=== PATIENT | female | born 1980 ===

== ENCOUNTER 2016-07-01 09:20 | Inpatient (IN) | payer OTHER ==
[2016-07-01 09:32] VITALS: BMI 25.0
[2016-07-01] MEDS ORDERED: Sodium Chloride 0.9% 1,000 ML IV STA (10:01)
[2016-07-01] MEDS ORDERED: Belladonna-Phenobarbital PO STA (10:01)
[2016-07-01] MEDS ORDERED: Belladonna-Phenobarbital ONE (10:29)
[2016-07-01] MEDS ORDERED: Sodium Chloride 0.9% 1,000 ML ONE (10:29)
--- NOTE | 2016-07-01 10:47 | C.PDOC ---
History Of Present Illness 35 y/o female presents to the ED with complains of epigastric pain with multiple episodes of vomiting and bloating. Pt reports history of gastritis, never been seen by GI. Pt is on omeprazole prescribed by PMD in [place]. Pt denies fever, chills, chest pain, SOB, diarrhea or any other complaints. Time Seen by Provider: 07/01/16 09:43 Chief Complaint (Nursing): Abdominal Pain History Per: Patient History/Exam Limitations: no limitations Onset/Duration Of Symptoms: Days Current Symptoms Are (Timing): Still Present Severity: Mild Location Of Pain/Discomfort: Epigastric Radiation Of Pain To:: None Quality Of Discomfort: "Pain" Associated Symptoms: Vomiting. denies: Fever, Diarrhea, Chest Pain Alleviating Factors: None Recent travel outside of the [place]: No Past Medical History Reviewed: Historical Data, Nursing Documentation, Vital Signs Vital Signs: Last Vital Signs Temp 98.1 F 07/01/16 12:48 Pulse 73 07/01/16 13:35 Resp 17 07/01/16 13:35 BP 125/90 07/01/16 13:35 Pulse Ox 100 07/01/16 15:51 - Medical History PMH: HTN, Kidney Stones (Right kidney), Chronic Kidney Disease (SEE COMMENT) Family History: States: Unknown Family Hx - Social History Hx Alcohol Use: Yes Hx Substance Use: No - Immunization History Hx Tetanus Toxoid Vaccination: No Hx Influenza Vaccination: No Hx Pneumococcal Vaccination: No Review Of Systems Except As Marked, All Systems Reviewed And Found Negative. Constitutional: Negative for: Fever, Chills Cardiovascular: Negative for: Chest Pain Respiratory: Negative for: Shortness of Breath Gastrointestinal: Positive for: Vomiting, Abdominal Pain. Negative for: Diarrhea Physical Exam - Physical Exam Appears: Non-toxic, Other (anxious) Skin: Warm, Dry, No Rash Head: Atraumatic, Normacephalic Neck: Normal ROM, Supple Chest: Symmetrical Cardiovascular: Rhythm Regular, No Murmur Respiratory: Normal Breath Sounds, No Rales, No Rhonchi, No Wheezing Gastrointestinal/Abdominal: Soft, Tenderness (epigastric), No Guarding, No Rebound Extremity: Normal ROM Extremity: Bilateral: Atraumatic Neurological/Psych: Oriented x3, Normal Speech ED Course And Treatment - Laboratory Results Result Diagrams: 07/01/16 10:48 07/01/16 10:48 O2 Sat by Pulse Oximetry: 100 (on room air) Pulse Ox Interpretation: Normal - CT Scan/US US abdomen Other Rad Studies (CT/US): Read By Radiologist, Radiology Report Reviewed CT/US Interpretation: Accession No. : [id number]. Patient Name / ID : ALEJA XAVIER / [id number]. Exam Date : 07/01/2016 13:08:34 ( Approved ). Study Comment : Sex / Age : F / 35Y. Creator : Maryam Singh MD. Dictator : Maryam Singh MD. Women'S Soccer Coach : Manager Winter : Maryam Singh MD. Approver2 : Report Date : 07/01/2016 14:08:11. My Comment : . HISTORY: epigastric/RUQ pain. COMPARISON: None available. TECHNIQUE: Sonographic evaluation of the right upper quadrant of the abdomen. FINDINGS: LIVER: Measures 14.5 cm in length and appears within normal limits. No focal mass identified. The main portal vein appears patent with normal directional flow. Tiny hepatic calcification within the right lobe, likely granuloma. No intrahepatic bile duct dilatation. GALLBLADDER: Gallstones. Immobile gallstone noted within the gallbladder neck. Gallbladder sludge. Gallbladder wall thickness appears top normal measuring approximately 3 mm. Small pericholecystic edema. Negative sonographic Sanches's sign as assessed by the hand embroiderer. COMMON BILE DUCT: Measures 5 mm. PANCREAS: Not well- visualized. RIGHT KIDNEY: Measures 10.2 x 4.2 x 4.9 cm. No obstructing calculus or hydronephrosis identified. 4 mm echogenic focus without clear posterior acoustic shadowing, possibly calculus versus tiny angio myelolipoma. AORTA: Limited visualization appears unremarkable. IVC: Limited visualization appears grossly unremarkable. OTHER FINDINGS: None . IMPRESSION : Gallstones and gallbladder sludge. Immobile gallstone noted within the gallbladder neck. Gallbladder wall thickness appears top normal. Mild pericholecystic edema. Negative sonographic Sanches's sign. Correlate clinically. Additional incidental findings as above. Progress Note: Plan: labs, UA, IV fluids, , protonix, zofran. US positive for gallbladder stone, possible acute cholecystitis. Spoke to surgery team who evaluated the patient. Case discussed with Glenna, donkey doctor surgeon , requested patient be admitted to medicine. Pt states her PMD is [facility]. Spoke to Vinny, she hasn't seen patient in a year and doesn't feel comfortable admitting patient; wants medicine donkey doctor to admit. Beverly Ramirez medicine donkey doctor accepts patient for admission. Disposition - Disposition Disposition: HOSPITALIZED Disposition Time: 15:50 Condition: FAIR - Clinical Impression Clinical Impression: Cholecystitis - PA / AGENCY RECRUITER / Resident Statement MD/DO has reviewed & agrees with the documentation as recorded. - Scribe Statement The provider has reviewed the documentation as recorded by the Scribe Festus Cadena All medical record entries made by the Scribe were at my direction and personally dictated by me. I have reviewed the chart and agree that the record accurately reflects my personal performance of the history, physical exam, medical decision making, and the department course for this patient. I have also personally directed, reviewed, and agree with the discharge instructions and disposition. Decision To Admit - Pt Status Changed To: Hospital Disposition Of: Inpatient - Admit Certification Admit to Inpatient:: After my assessment, the patient will require hospitalization for at least two midnights. This is because of the severity of symptoms shown, intensity of services needed, and/or the medical risk in this patient being treated as an outpatient. - InPatient: Physician Admission Certification:: will need IV anx and surgical treatment for acute chilecystitis - . Bed Request Type: Regular Patient Diagnosis: Cholecystitis
[2016-07-01 10:52] LABS: RBC URINE < 1 /hpf (0-3); URINE BACTERIA RARE (<OCC); URINE BILIRUBIN NEGATIVE (NEGATIVE); URINE BLOOD NEGATIVE (NEGATIVE); URINE COLOR Yellow (YELLOW); URINE GLUCOSE (UA) 1+ mg/dL (Normal); URINE KETONE NEGATIVE (NEGATIVE); URINE LEUKOCYTE ESTERASE NEG Leu/uL (Negative); URINE PROTEIN NEGATIVE (NEGATIVE); URINE UROBILINOGEN NORMAL mg/dL (0.2-1.0); WBC URINE 1 /hpf (0-5)
[2016-07-01 10:55] LABS: BASO # 0.1 K/uL (0.0-0.2); BASO % 0.7 % (0.0-2.0); EOS % 0.1 % (0.0-4.0); HEMATOCRIT 44.9 % (34.0-47.0); LYMPH % 16.3 % (20.0-40.0); MEAN CELL VOLUME 90.3 fL (81.0-99.0); MEAN CORPUSCULAR HEMOGLOBIN 30.2 pg (27.0-31.0); MEAN CORPUSCULAR HGB CONC 33.5 g/dL (33.0-37.0); MONO # 0.9 K/uL (0.0-0.8); MONO % 4.6 % (0.0-10.0); RED CELL DISTRIBUTION WIDTH 13.1 % (11.5-14.5); WHITE BLOOD COUNT 18.4 K/uL (4.8-10.8)
[2016-07-01 11:08] LABS: CHLORIDE 97 mmol/L (98-107)
[2016-07-01 11:09] LABS: POTASSIUM 3.5 mmol/L (3.6-5.2); SODIUM 137 mmol/L (132-148)
[2016-07-01 11:11] LABS: ALB/GLOB RATIO 1.2 (1.0-2.1); ALKALINE PHOSPHATASE 69 U/L (38-126); ALT/SGPT 17 U/L (9-52); AST/SGOT 28 U/L (14-36); BILIRUBIN,TOTAL 0.4 mg/dL (0.2-1.3); BLOOD UREA NITROGEN 7 mg/dL (7-17); CARBON DIOXIDE 25 mmol/L (22-30); GFR AFRICAN-AMERICAN > 60; GLUCOSE,RANDOM 122 mg/dL (65-105); TOTAL PROTEIN 8.3 g/dL (6.3-8.3)
[2016-07-01 11:12] LABS: CALCIUM 9.3 mg/dl (8.6-10.4)
--- NOTE | 2016-07-01 14:09 | US ---
HISTORY: epigastric/RUQ pain COMPARISON: None available TECHNIQUE: Sonographic evaluation of the right upper quadrant of the abdomen. FINDINGS: LIVER: Measures 14.5 cm in length and appears within normal limits. No focal mass identified. The main portal vein appears patent with normal directional flow. Tiny hepatic calcification within the right lobe, likely granuloma. No intrahepatic bile duct dilatation. GALLBLADDER: Gallstones. Immobile gallstone noted within the gallbladder neck. Gallbladder sludge. Gallbladder wall thickness appears top normal measuring approximately 3 mm. Small pericholecystic edema. Negative sonographic Sanches's sign as assessed by the ropewalk rope maker. COMMON BILE DUCT: Measures 5 mm. PANCREAS: Not well-visualized. RIGHT KIDNEY: Measures 10.2 x 4.2 x 4.9 cm. No obstructing calculus or hydronephrosis identified. 4 mm echogenic focus without clear posterior acoustic shadowing, possibly calculus versus tiny angio myelolipoma. AORTA: Limited visualization appears unremarkable. IVC: Limited visualization appears grossly unremarkable. OTHER FINDINGS: None . IMPRESSION: Gallstones and gallbladder sludge. Immobile gallstone noted within the gallbladder neck. Gallbladder wall thickness appears top normal. Mild pericholecystic edema. Negative sonographic Sanches's sign. Correlate clinically. Additional incidental findings as above.
--- NOTE | 2016-07-01 15:19 | CP.PCM.CON ---
<Tulio Arellano - Last Filed: 07/01/16 15:11> History of Present Illness - History of Present Illness History of Present Illness: Gen Surg: Dr. Manzanares 35F w/ PMHx of HTN presented to ED on 07/01/16 w/ complaints of abdominal pain. Patient reports pain began yesterday around 8PM. She states pain is associated with fatty food intake. Patient reports she's had similar episodes in the past but none this severe. Patient admits pain radiates to her back and describes it as a pressure-like sensation. She reports having nausea and having one bout of emesis which was non-bilious, non-bloody. Pt states she tried taking tums, gas-x , which provided no symptom relief. Currently denies chest pain/SOB, diarrhea. PMHx:as listed above PSurgHx: lipoma removal Allergies: Aspirin, gabapentin Soc Hx: Smokes 6-8cigs for the past 18 years. EtOH use, socially. Review of Systems - Review of Systems Review of Systems: 12pt ROS carried out, unremarkable; except as stated in HPI Past Patient History - Past Social History Smoking Status: Light Smoker < 10 Cigarettes Daily - CARDIAC Hx Hypertension: Yes - RENAL Hx Chronic Kidney Disease: Yes (SEE COMMENT) Hx Kidney Stones: Yes (Right kidney) - INTEGUMENTARY Hx Dermatological Problems: Yes (SEE COMMENT) Other/Comment: LIPOMA - GASTROINTESTINAL Hx Gastrointestinal Disorders: Yes Hx Gastroesophageal Reflux: Yes - GENITOURINARY/GYNECOLOGICAL Hx Genitourinary Disorders: Yes Hx Urinary Tract Infection: Yes - PSYCHIATRIC Hx Substance Use: No Meds Allergies/Adverse Reactions: Allergies Allergy/AdvReac Type Severity Reaction Status Date / Time aspirin Allergy Verified 07/01/16 09:32 gabapentin Allergy Verified 07/01/16 09:32 Physical Exam - Constitutional Appears: Non-toxic, No Acute Distress - Head Exam Head Exam: NORMOCEPHALIC - Eye Exam Eye Exam: Normal appearance - ENT Exam ENT Exam: Mucous Membranes Moist - Respiratory Exam Respiratory Exam: NORMAL BREATHING PATTERN - Cardiovascular Exam Cardiovascular Exam: +S1, +S2. absent: Tachycardia - GI/Abdominal Exam GI & Abdominal Exam: Soft, Tenderness. absent: Guarding Additional comments: RUQ/ epi-gastrium - Neurological Exam Neurological exam: Alert, Oriented x3 - Skin Skin Exam: Dry, Intact, Warm Results - Vital Signs Recent Vital Signs: Last Vital Signs Temp 98.1 F 07/01/16 12:48 Pulse 73 07/01/16 13:35 Resp 17 07/01/16 13:35 BP 125/90 07/01/16 13:35 Pulse Ox 98 07/01/16 13:35 - Labs Result Diagrams: 07/01/16 10:48 07/01/16 10:48 Labs: Laboratory Results - last 24 hr 07/01/16 07/01/16 10:25 10:48 WBC 18.4 H RBC 4.98 Hgb 15.0 Hct 44.9 MCV 90.3 MCH 30.2 MCHC 33.5 RDW 13.1 Plt Count 260 MPV 10.0 Neut % (Auto) 78.3 H Lymph % (Auto) 16.3 L Smyth % (Auto) 4.6 Eos % (Auto) 0.1 Baso % (Auto) 0.7 Neut # 14.4 H Lymph # 3.0 Smyth # 0.9 H Eos # 0.0 Baso # 0.1 Sodium 137 Potassium 3.5 L Chloride 97 L Carbon Dioxide 25 Anion Gap 19 BUN 7 Creatinine 0.7 Est GFR ( Amer) > 60 Est GFR (Non-Af Amer) > 60 Random Glucose 122 H Calcium 9.3 Total Bilirubin 0.4 AST 28 ALT 17 Alkaline Phosphatase 69 Total Protein 8.3 Albumin 4.4 Globulin 3.8 Albumin/Globulin Ratio 1.2 Lipase 30 Urine Color Yellow Urine Clarity Hazy Urine pH 7.0 Ur Specific Katy 1.012 Urine Protein Negative Urine Glucose (UA) 1+ Urine Ketones Negative Urine Blood Negative Urine Nitrate Negative Urine Bilirubin Negative Urine Urobilinogen Normal Ur Leukocyte Esterase Neg Urine WBC (Auto) 1 Urine RBC (Auto) < 1 Ur Squamous Epith Cells 8 H Urine Bacteria Rare Urine HCG, Qual Negative - Imaging and Cardiology US - abdomen Status: Image reviewed by me, Report reviewed by me Assessment & Plan - Assessment and Plan (Free Text) Assessment: 35F w/ symptomatic cholelithiasis vs. acute cholecystitis -F/U HIDA scan -NPO after MN -Scheduled for laparoscopic cholecystectomy tomorrow AM -IVF -ABx -analgesic/anti-emetic -GI/DVT ppx -D/w Dr. Manzanares <Singh Manzanares - Last Filed: 07/09/16 17:49> Results - Vital Signs Recent Vital Signs: Last Vital Signs Temp 98.1 F 07/03/16 00:00 Pulse 65 07/03/16 00:00 Resp 20 07/03/16 00:00 BP 100/60 07/03/16 00:00 Pulse Ox 99 07/03/16 00:00 - Labs Result Diagrams: 07/03/16 05:44 07/03/16 05:44 Attending/Attestation - Attestation I have personally seen and examined this patient.: Yes I have fully participated in the care of the patient.: Yes I have reviewed all pertinent clinical information: Yes Notes (Text): 07/09/16 17:47 07/07/16 21:16 Pt was seen and examined at bedside on 07/02/16 Agree with above note and assessment Pt with Acute Cholecystitis with Cholelithiasis OR for Lap Cholecystectomy possible Open Consent Plan d.w pt in detail. Risk and benefit explaine in detail.
[2016-07-01] MEDS ORDERED: Piperacillin/Tazobact 3.375 gm 100 ML IV STA (15:24)
[2016-07-01] MEDS ORDERED: Piperacillin/Tazobact 3.375 gm 100 ML IVPB ONE (16:25)
[2016-07-01] MEDS ORDERED: Lactated Ringer's 1,000 ML ONE (16:26)
--- NOTE | 2016-07-01 16:52 | RAD ---
Chest, one view Indication: Preop Comparison: None available Findings: Examination limited by habitus. The cardiomediastinal silhouette appears within normal limits of size. No focal consolidation, significant pleural effusion, or definite pneumothorax evident. 3 mm left upper lobe calcified granuloma. Please note that chest x-ray has limited sensitivity for the detection of pulmonary masses. Degenerative changes of the spine. Impression: No focal consolidation, significant pleural effusion, or definite pneumothorax evident.
[2016-07-01] MEDS: Lactated Ringer's 1,000 ML IV SCH (17:08)
[2016-07-01 17:19] LABS: INR 0.9
--- NOTE | 2016-07-01 19:06 | CP.PCM.HP ---
History of Present Illness - History of Present Illness History of Present Illness: 35 yo female pt with pmh of HTN, gastritis, CKD, Right kidney stones presented with c/o multiple epi of vomiting and bloating of abdomen asso with epigastric pain. pt taking PPIs for gastritis. no fever, vomiting, chest pain. no SOB, no any recent trauma. in ED, blood work done s/o incre WBC. USG abd s/o immobile gallstone noted within the gallbladder neck. Gallbladder sludge. started on iv fluids, antibiotics, zofran, protonix. Present on Admission - Present on Admission Any Indicators Present on Admission: No Past Patient History - Past Social History Smoking Status: Light Smoker < 10 Cigarettes Daily - CARDIAC Hx Hypertension: Yes - RENAL Hx Chronic Kidney Disease: Yes (SEE COMMENT) Hx Kidney Stones: Yes (Right kidney) - INTEGUMENTARY Hx Dermatological Problems: Yes (SEE COMMENT) Other/Comment: LIPOMA - GASTROINTESTINAL Hx Gastrointestinal Disorders: Yes Hx Gastroesophageal Reflux: Yes - GENITOURINARY/GYNECOLOGICAL Hx Genitourinary Disorders: Yes Hx Urinary Tract Infection: Yes - PSYCHIATRIC Hx Substance Use: No Meds Allergies/Adverse Reactions: Allergies Allergy/AdvReac Type Severity Reaction Status Date / Time aspirin Allergy Verified 07/01/16 09:32 gabapentin Allergy Verified 07/01/16 09:32 Physical Exam - Constitutional Appears: Well - Head Exam Head Exam: ATRAUMATIC, NORMAL INSPECTION, NORMOCEPHALIC - Eye Exam Eye Exam: EOMI, Normal appearance, PERRL Pupil Exam: NORMAL ACCOMODATION, PERRL - ENT Exam ENT Exam: Mucous Membranes Moist, Normal Exam - Neck Exam Neck exam: Positive for: Normal Inspection - Respiratory Exam Respiratory Exam: Decreased Breath Sounds - Cardiovascular Exam Cardiovascular Exam: REGULAR RHYTHM, +S1, +S2 - GI/Abdominal Exam GI & Abdominal Exam: Diminished Bowel Sounds, Soft - Rectal Exam Rectal Exam: Deferred Results - Vital Signs Recent Vital Signs: Last Vital Signs Temp 98.4 F 07/01/16 18:00 Pulse 52 L 07/01/16 18:00 Resp 20 07/01/16 18:00 BP 145/85 07/01/16 18:00 Pulse Ox 99 07/01/16 18:00 - Labs Result Diagrams: 07/03/16 05:44 07/03/16 05:44 Labs: Laboratory Results - last 24 hr 07/01/16 17:09 PT 10.5 INR 0.9 APTT 22 Assessment & Plan (1) Cholecystitis Status: Acute - Assessment and Plan (Free Text) Plan: zosyn enalaril morphine dr. maurer protonix lovenox on hold till surg cnti same
[2016-07-01] MEDS: Piperacill/Tazo 3.375gm in Dex 50 ML IVPB SCH (19:30)
--- NOTE | 2016-07-01 19:49 | NM ---
EXAM: NM Hepatobiliary Scan CLINICAL HISTORY: 35 years old, female; Pain; Ruq pain; Additional info: Gallstones, sludge, gallbladder wall thickening and pericholecystic edema seen on sonography Gender: female TECHNIQUE: Frontal dynamic images of the abdomen and pelvis were obtained over 60 minutes following the intravenous administration of 5.1 mCi of Tc99m Choletec. EXAM DATE/TIME: 07/01/2016 2:38 PM COMPARISON: There are no prior studies for comparison. Correlation is made with sonogram report dated 07/01/16 FINDINGS: Liver: There is extraction of isotope by the liver. Ducts are visualized by 20 minutes. Bowel is visualized by 25 minutes. Imaging up to 60 minutes shows further clearance of activity from the liver with increasing bowel activity. There is no activity in the gallbladder. 3 hour delayed images show almost complete clearance of isotope from the liver with activity in bowel. There is nonvisualization of gallbladder Bile ducts: See above Gallbladder: See above. Stomach and bowel: See above. IMPRESSION: Nonvisualization of gallbladder consistent with cholecystitis
[2016-07-01] MEDS ORDERED: Potassium Chloride 20 mEq 100 ML IVPB ONE (20:00)
[2016-07-02] MEDS: Lactated Ringer's 1,000 ML IV SCH ×2 (01:30→21:46)
[2016-07-02] MEDS: Piperacill/Tazo 3.375gm in Dex 50 ML IVPB SCH ×3 (01:30→19:50)
[2016-07-02 06:04] LABS: BASO # 0.1 K/uL (0.0-0.2); EOS # 0.3 K/uL (0.0-0.7); EOS % 3.5 % (0.0-4.0); HEMATOCRIT 40.1 % (34.0-47.0); LYMPH # 3.2 K/uL (1.0-4.3); LYMPH % 35.3 % (20.0-40.0); MEAN CELL VOLUME 91.3 fL (81.0-99.0); MEAN CORPUSCULAR HEMOGLOBIN 30.4 pg (27.0-31.0); MEAN CORPUSCULAR HGB CONC 33.3 g/dL (33.0-37.0); MEAN PLATELET VOLUME 9.8 fL (7.2-11.7); MONO # 0.7 K/uL (0.0-0.8); MONO % 7.7 % (0.0-10.0); RED CELL DISTRIBUTION WIDTH 13.4 % (11.5-14.5); WHITE BLOOD COUNT 9.1 K/uL (4.8-10.8)
[2016-07-02 06:09] LABS: CHLORIDE 100 mmol/L (98-107); POTASSIUM 4.3 mmol/L (3.6-5.2); SODIUM 140 mmol/L (132-148)
[2016-07-02 06:11] LABS: GFR AFRICAN-AMERICAN > 60
[2016-07-02 06:12] LABS: ALB/GLOB RATIO 1.1 (1.0-2.1); ALKALINE PHOSPHATASE 51 U/L (38-126); ALT/SGPT 36 U/L (9-52); AST/SGOT 27 U/L (14-36); BLOOD UREA NITROGEN 5 mg/dL (7-17); CARBON DIOXIDE 28 mmol/L (22-30); GLUCOSE,RANDOM 88 mg/dL (65-105); TOTAL PROTEIN 6.3 g/dL (6.3-8.3)
[2016-07-02] MEDS ORDERED: Propofol 10 mg/ml Inj (20 ML) ONE (11:09)
[2016-07-02] MEDS ORDERED: Midazolam 2 MG/2 ML VIAL ONE (11:09)
[2016-07-02] MEDS ORDERED: Rocuronium 10 mg/ml (5 ml) ONE (11:29)
[2016-07-02] MEDS ORDERED: Succinylcholine Chloride 20 mg/ml Syr (5 ml) IV ONE (11:29)
[2016-07-02] MEDS ORDERED: Neostigmine Methylsulfate 3mg/3ml Syringe IV ONE (11:30)
[2016-07-02] MEDS ORDERED: Lidocaine 1% w Epi 1:100,000 Inj ONE (12:02)
[2016-07-02] MEDS ORDERED: Bupivacaine HCl 0.25% PF (10 ml) Inj ONE (12:03)
[2016-07-02] MEDS ORDERED: ceFAZolin IV 1 gm in Dextrose 0 ML IVPB ONE (12:03)
[2016-07-02] MEDS ORDERED: Lactated Ringer's 1,000 ML IV ONE ×2 (12:05→13:30)
--- NOTE | 2016-07-02 14:16 | PCM.SURG1 ---
Surgeon's Initial Post Op Note - Surgeon's Notes Surgeon: Dr. Manzanares Die Casting Machine Maintainer: Dr. Arellano PGY-1 Type of Anesthesia: General Endo Pre-Operative Diagnosis: acute cholecystitis Operative Findings: see operative report Post-Operative Diagnosis: see operative report Operation Performed: laparoscopic cholecystectomy. lysis of adhesions Specimen/Specimens Removed: gallbladder Estimated Blood Loss: EBL {In ML}: 75 Blood Products Given: N/A Drains Used: Dimas Date of Surgery/Procedure: 07/02/16 Time of Surgery/Procedure: 12:30
[2016-07-02] MEDS: HYDROmorphone 0.5 mg/0.5 ml ISec IVP PRN ×3 (14:24→15:29)
--- NOTE | 2016-07-02 15:02 | CP.PCM.PN ---
<Chayito Be - Last Filed: 07/02/16 14:58> Subjective - Date & Time of Evaluation Date of Evaluation: 07/02/16 Time of Evaluation: 10:00 - Subjective Subjective: Medicine Progress Note- Dr Beverly Ramirez's service Patient seen and examined this morning prior to surgery. Patient comfortable and not complaining of abdominal pain at the moment. She states that she starting experiencing pain yesterday night and that she has had this pain before. In the past it resolved on its own and she thought that it was due to gas and bloating. Patient experienced chills and nausea as well. Denies fever , vomiting, diarrhea, chest pain, shortness of breath, and palpitations. Objective - Vital Signs/Intake and Output Vital Signs (last 24 hours): Temp Pulse Resp BP Pulse Ox 97.6 F 81 20 138/87 100 07/02/16 14:13 07/02/16 14:45 07/02/16 14:45 07/02/16 14:45 07/02/16 14:45 Intake and Output: 07/02/16 07/02/16 06:59 18:59 Intake Total 1700 Balance 1700 - Medications Medications: Current Medications Enalapril Maleate (Vasotec) 10 mg PO DAILY [facility] Famotidine (Pepcid) 20 mg IVP DAILY [facility] Last Admin: 07/01/16 22:12 Dose: 20 mg Hydromorphone HCl (Dilaudid) 0.5 mg IVP Q5M PRN PRN Reason: Pain, Mild (1-3) Stop: 07/02/16 15:06 Last Admin: 07/02/16 14:35 Dose: 0.5 mg Lactated Ringer's (Lactated Ringer's) 1,000 mls @ 100 mls/hr IV .Q10H [facility] Last Admin: 07/02/16 01:30 Dose: Not Given Piperacillin Sod/Tazobactam Sod (Zosyn 3.375 Gm Iv Premix) 50 mls @ 100 mls/hr IVPB Q6H [facility] Last Admin: 07/02/16 06:17 Dose: 100 mls/hr Metoprolol Tartrate (Lopressor) 50 mg PO DAILY [facility] Morphine Sulfate (Morphine) 4 mg IVP Q4H PRN PRN Reason: Pain, moderate (4-7) Ondansetron HCl (Zofran Inj) 4 mg IVP Q4 PRN PRN Reason: Nausea/Vomiting Ondansetron HCl (Zofran Inj) 4 mg IVP ONCE PRN PRN Reason: Nausea/Vomiting Stop: 07/02/16 15:06 Pantoprazole Sodium (Protonix Ec Tab) 40 mg PO DAILY AJ - Labs Labs: 07/02/16 05:53 07/02/16 05:53 PT 10.9 SECONDS (9.7-12.2) 07/02/16 05:53 INR 1.0 07/02/16 05:53 APTT 31 SECONDS (21-34) D 07/02/16 05:53 - Constitutional Appears: Non-toxic, No Acute Distress - Head Exam Head Exam: ATRAUMATIC, NORMOCEPHALIC - Eye Exam Eye Exam: EOMI, Normal appearance Pupil Exam: NORMAL ACCOMODATION - ENT Exam ENT Exam: Mucous Membranes Moist - Neck Exam Neck Exam: Normal Inspection - Respiratory Exam Respiratory Exam: Clear to Ausculation Bilateral, NORMAL BREATHING PATTERN. absent: Wheezes, Respiratory Distress - Cardiovascular Exam Cardiovascular Exam: REGULAR RHYTHM, +S1, +S2 - GI/Abdominal Exam GI & Abdominal Exam: Soft, Tenderness (mild ttp RUQ ), Normal Bowel Sounds. absent: Distended, Firm, Guarding - Extremities Exam Extremities Exam: Full ROM, Normal Inspection. absent: Pedal Edema - Neurological Exam Neurological Exam: Alert, Awake, CN II-XII Intact, Oriented x3 - Psychiatric Exam Psychiatric exam: Normal Affect, Normal Mood - Skin Skin Exam: Dry, Intact, Normal Color, Warm Assessment and Plan - Assessment and Plan (Free Text) Assessment: (1) Acute cholecystitis NPO for lap gerard today with Dr Glenna COX positive for cholecystitis IVF Zosyn 3.375gm IV q6h Morphine prn pain Zofran IV prn nausea/vomiting May advance to regular diet after surgery (2) HTN Continue home meds Vasotec 10mg PO daily and Lopressor 50mg PO daily (3) Prophylactic measures SCDs Protonix 40mg PO daily Discussed with attending. <Ridge Ramirez - Last Filed: 07/02/16 22:43> Objective - Vital Signs/Intake and Output Vital Signs (last 24 hours): Temp Pulse Resp BP Pulse Ox 97.6 F 90 18 147/87 99 07/02/16 16:00 07/02/16 17:01 07/02/16 16:00 07/02/16 18:30 07/02/16 16:00 Intake and Output: 07/02/16 07/03/16 18:59 06:59 Output Total 240 Balance -240 - Medications Medications: Current Medications Enalapril Maleate (Vasotec) 10 mg PO DAILY [facility] Last Admin: 07/02/16 18:30 Dose: 10 mg Famotidine (Pepcid) 20 mg IVP DAILY [facility] Last Admin: 07/02/16 18:31 Dose: 20 mg Lactated Ringer's (Lactated Ringer's) 1,000 mls @ 100 mls/hr IV .Q10H [facility] Last Admin: 07/02/16 01:30 Dose: Not Given Piperacillin Sod/Tazobactam Sod (Zosyn 3.375 Gm Iv Premix) 50 mls @ 100 mls/hr IVPB Q6H [facility] Last Admin: 07/02/16 06:17 Dose: 100 mls/hr Ketorolac Tromethamine (Toradol) 30 mg IM Q6 PRN PRN Reason: Pain, moderate (4-7) Metoprolol Tartrate (Lopressor) 50 mg PO DAILY [facility] Last Admin: 07/02/16 18:30 Dose: 50 mg Morphine Sulfate (Morphine) 4 mg IVP Q4H PRN PRN Reason: Pain, moderate (4-7) Last Admin: 07/02/16 18:32 Dose: 4 mg Ondansetron HCl (Zofran Inj) 4 mg IVP Q4 PRN PRN Reason: Nausea/Vomiting Pantoprazole Sodium (Protonix Ec Tab) 40 mg PO DAILY [facility] Last Admin: 07/02/16 18:30 Dose: 40 mg - Labs Labs: 07/02/16 05:53 07/02/16 05:53 PT 10.9 SECONDS (9.7-12.2) 07/02/16 05:53 INR 1.0 07/02/16 05:53 APTT 31 SECONDS (21-34) D 07/02/16 05:53 Attending/Attestation - Attestation I have personally seen and examined this patient.: Yes I have fully participated in the care of the patient.: Yes I have reviewed all pertinent clinical information, including history, physical exam and plan: Yes Notes (Text): 07/02/16 22:42 case seen and discussed with staff and resident mx as agreed
[2016-07-02 16:39] VITALS: O2SAT 99
--- NOTE | 2016-07-02 16:55 | CARD ---
APPROVED REPORT EKG Measurement Heart [id number] <Conclusion> Normal sinus rhythm Normal ECG
--- NOTE | 2016-07-02 17:57 | CP.PCM.PN ---
Subjective - Date & Time of Evaluation Date of Evaluation: 07/02/16 Time of Evaluation: 14:40 - Subjective Subjective: clinically same s/p OR with Dr Manzanares for lap cholecystectomy Objective - Vital Signs/Intake and Output Vital Signs (last 24 hours): Temp Pulse Resp BP Pulse Ox 97.6 F 90 18 147/87 99 07/02/16 16:00 07/02/16 17:01 07/02/16 16:00 07/02/16 16:00 07/02/16 16:00 Intake and Output: 07/02/16 07/02/16 06:59 18:59 Intake Total 1700 Output Total 240 Balance 1700 -240 - Medications Medications: Current Medications Enalapril Maleate (Vasotec) 10 mg PO DAILY [facility] Famotidine (Pepcid) 20 mg IVP DAILY [facility] Last Admin: 07/01/16 22:12 Dose: 20 mg Lactated Ringer's (Lactated Ringer's) 1,000 mls @ 100 mls/hr IV .Q10H [facility] Last Admin: 07/02/16 01:30 Dose: Not Given Piperacillin Sod/Tazobactam Sod (Zosyn 3.375 Gm Iv Premix) 50 mls @ 100 mls/hr IVPB Q6H [facility] Last Admin: 07/02/16 06:17 Dose: 100 mls/hr Ketorolac Tromethamine (Toradol) 30 mg IM Q6 PRN PRN Reason: Pain, moderate (4-7) Metoprolol Tartrate (Lopressor) 50 mg PO DAILY [facility] Morphine Sulfate (Morphine) 4 mg IVP Q4H PRN PRN Reason: Pain, moderate (4-7) Ondansetron HCl (Zofran Inj) 4 mg IVP Q4 PRN PRN Reason: Nausea/Vomiting Pantoprazole Sodium (Protonix Ec Tab) 40 mg PO DAILY [facility] - Labs Labs: 07/02/16 05:53 07/02/16 05:53 PT 10.9 SECONDS (9.7-12.2) 07/02/16 05:53 INR 1.0 07/02/16 05:53 APTT 31 SECONDS (21-34) D 07/02/16 05:53 - Constitutional Appears: Well - Head Exam Head Exam: ATRAUMATIC, NORMAL INSPECTION, NORMOCEPHALIC - Eye Exam Eye Exam: EOMI, Normal appearance, PERRL Pupil Exam: NORMAL ACCOMODATION, PERRL - ENT Exam ENT Exam: Mucous Membranes Moist, Normal Exam - Neck Exam Neck Exam: Full ROM, Normal Inspection. absent: Lymphadenopathy - Respiratory Exam Respiratory Exam: Decreased Breath Sounds - Cardiovascular Exam Cardiovascular Exam: REGULAR RHYTHM, +S1, +S2 - GI/Abdominal Exam GI & Abdominal Exam: Soft, Diminished Bowel Sounds - Rectal Exam Rectal Exam: Deferred - Neurological Exam Neurological Exam: Alert, Awake, Oriented x3 Assessment and Plan (1) Cholecystitis Status: Acute - Assessment and Plan (Free Text) Plan: s/p OR with Dr Manzanares for lap cholecystectomy jasmyn mx as ordered case discussed with Dr Manzanares f/u labs
[2016-07-02] MEDS: Pantoprazole 40 mg EC Tab PO SCH (18:30)
[2016-07-02] MEDS: Morphine 4 MG/ML VIAL IVP PRN (18:32)
[2016-07-03] MEDS: Piperacill/Tazo 3.375gm in Dex 50 ML IVPB SCH ×2 (01:10→06:18)
[2016-07-03] MEDS: Morphine 4 MG/ML VIAL IVP PRN (01:10)
[2016-07-03 03:37] VITALS: BP 100/60; PULSE 65; RESP 20; TEMP 98.1
[2016-07-03 05:57] LABS: BASO # 0.1 K/uL (0.0-0.2); BASO % 0.7 % (0.0-2.0); EOS # 0.3 K/uL (0.0-0.7); EOS % 3.3 % (0.0-4.0); HEMATOCRIT 36.6 % (34.0-47.0); LYMPH # 2.6 K/uL (1.0-4.3); LYMPH % 24.6 % (20.0-40.0); MEAN CELL VOLUME 91.6 fL (81.0-99.0); MEAN CORPUSCULAR HEMOGLOBIN 30.4 pg (27.0-31.0); MEAN CORPUSCULAR HGB CONC 33.2 g/dL (33.0-37.0); MEAN PLATELET VOLUME 9.8 fL (7.2-11.7); MONO # 0.8 K/uL (0.0-0.8); MONO % 7.3 % (0.0-10.0); RED CELL DISTRIBUTION WIDTH 13.1 % (11.5-14.5); WHITE BLOOD COUNT 10.5 K/uL (4.8-10.8)
[2016-07-03 06:09] LABS: CHLORIDE 100 mmol/L (98-107)
[2016-07-03 06:10] LABS: POTASSIUM 3.8 mmol/L (3.6-5.2); SODIUM 136 mmol/L (132-148)
[2016-07-03 06:12] LABS: ALB/GLOB RATIO 1.1 (1.0-2.1); ALKALINE PHOSPHATASE 106 U/L (38-126); AST/SGOT 234 U/L (14-36); BILIRUBIN,TOTAL 0.4 mg/dL (0.2-1.3); BLOOD UREA NITROGEN 9 mg/dL (7-17); CARBON DIOXIDE 25 mmol/L (22-30); GFR AFRICAN-AMERICAN > 60; GLUCOSE,RANDOM 114 mg/dL (65-105); TOTAL PROTEIN 5.8 g/dL (6.3-8.3)
[2016-07-03 06:13] LABS: ALT/SGPT 323 U/L (9-52); CALCIUM 7.6 mg/dl (8.6-10.4)
[2016-07-03] MEDS: Lactated Ringer's 1,000 ML IV SCH (08:15)
[2016-07-03] MEDS: Pantoprazole 40 mg EC Tab PO SCH (10:49)
[2016-07-03] MEDS ORDERED: Oxycodone/Acetaminophen 5/325 mg Tab PO PRN (11:07)
--- NOTE | 2016-07-03 11:48 | CP.PCM.PN ---
Subjective - Date & Time of Evaluation Date of Evaluation: 07/03/16 Time of Evaluation: 10:40 - Subjective Subjective: Dr. Alaniz service: Patient is seen in room. She is post op day 1. She is complaining of mild right upper quadrant pain that is worse with coughing. She also is tolerating diet with no nausea/vomiting. She says she is passing gas with no bowel movement. She is also denies fever, chills, chest pain, or shortness of breath. Objective - Vital Signs/Intake and Output Vital Signs (last 24 hours): Temp Pulse Resp BP Pulse Ox 98.1 F 65 20 100/60 99 07/03/16 00:00 07/03/16 00:00 07/03/16 00:00 07/03/16 00:00 07/03/16 00:00 Intake and Output: 07/03/16 07/03/16 06:59 18:59 Intake Total 1000 Output Total 20 Balance 980 - Medications Medications: Current Medications Enalapril Maleate (Vasotec) 10 mg PO DAILY [facility] Last Admin: 07/03/16 10:48 Dose: Not Given Piperacillin Sod/Tazobactam Sod (Zosyn 3.375 Gm Iv Premix) 50 mls @ 100 mls/hr IVPB Q6H [facility] Last Admin: 07/03/16 06:18 Dose: 100 mls/hr Ketorolac Tromethamine (Toradol) 30 mg IM Q6 PRN PRN Reason: Pain, moderate (4-7) Last Admin: 07/03/16 06:00 Dose: 30 mg Metoprolol Tartrate (Lopressor) 50 mg PO DAILY [facility] Last Admin: 07/03/16 10:49 Dose: Not Given Ondansetron HCl (Zofran Inj) 4 mg IVP Q4 PRN PRN Reason: Nausea/Vomiting Oxycodone/Acetaminophen (Percocet 5/325 Mg Tab) 1 tab PO Q6H PRN PRN Reason: Pain, moderate (4-7) Stop: 07/06/16 11:08 Last Admin: 07/03/16 11:42 Dose: 1 tab Pantoprazole Sodium (Protonix Ec Tab) 40 mg PO DAILY [facility] Last Admin: 07/03/16 10:49 Dose: 40 mg - Labs Labs: 07/03/16 05:44 07/03/16 05:44 PT 10.9 SECONDS (9.7-12.2) 07/02/16 05:53 INR 1.0 07/02/16 05:53 APTT 31 SECONDS (21-34) D 07/02/16 05:53 - Constitutional Appears: Non-toxic, No Acute Distress - Head Exam Head Exam: NORMAL INSPECTION - Eye Exam Pupil Exam: NORMAL ACCOMODATION - Respiratory Exam Respiratory Exam: Clear to Ausculation Bilateral. absent: Rhonchi, Wheezes - Cardiovascular Exam Cardiovascular Exam: REGULAR RHYTHM, RRR, +S1, +S2. absent: Gallop, Rubs - GI/Abdominal Exam Additional comments: patient 3 clean dressing on her abdomen. - Extremities Exam Extremities Exam: Normal Inspection Assessment and Plan (1) Cholecystitis Assessment & Plan: Patient discharged and will follow up Dr. Ramirez and Dr. Manzanares. No PO antibiotics given per Surgical team. Status: Acute
--- NOTE | 2016-07-03 11:56 | CP.PCM.PN ---
Subjective - Date & Time of Evaluation Date of Evaluation: 07/03/16 Time of Evaluation: 09:15 - Subjective Subjective: Gen Surg: Dr. Manzanares Pt S&E this AM. NAEO. Patient tolerating diet and ambulating. Review of vitals is normal. REGINA output w/ 30cc serosanguinous. REGINA drain removed at bedside. Reports some abdominal tenderness along surgical incision wounds. Objective - Vital Signs/Intake and Output Vital Signs (last 24 hours): Temp Pulse Resp BP Pulse Ox 98.1 F 65 20 100/60 99 07/03/16 00:00 07/03/16 00:00 07/03/16 00:00 07/03/16 00:00 07/03/16 00:00 Intake and Output: 07/03/16 07/03/16 06:59 18:59 Intake Total 1000 Output Total 20 Balance 980 - Medications Medications: Current Medications Enalapril Maleate (Vasotec) 10 mg PO DAILY [facility] Last Admin: 07/03/16 10:48 Dose: Not Given Piperacillin Sod/Tazobactam Sod (Zosyn 3.375 Gm Iv Premix) 50 mls @ 100 mls/hr IVPB Q6H [facility] Last Admin: 07/03/16 06:18 Dose: 100 mls/hr Ketorolac Tromethamine (Toradol) 30 mg IM Q6 PRN PRN Reason: Pain, moderate (4-7) Last Admin: 07/03/16 06:00 Dose: 30 mg Metoprolol Tartrate (Lopressor) 50 mg PO DAILY [facility] Last Admin: 07/03/16 10:49 Dose: Not Given Ondansetron HCl (Zofran Inj) 4 mg IVP Q4 PRN PRN Reason: Nausea/Vomiting Oxycodone/Acetaminophen (Percocet 5/325 Mg Tab) 1 tab PO Q6H PRN PRN Reason: Pain, moderate (4-7) Stop: 07/06/16 11:08 Last Admin: 07/03/16 11:42 Dose: 1 tab Pantoprazole Sodium (Protonix Ec Tab) 40 mg PO DAILY [facility] Last Admin: 07/03/16 10:49 Dose: 40 mg - Labs Labs: 07/03/16 05:44 07/03/16 05:44 PT 10.9 SECONDS (9.7-12.2) 07/02/16 05:53 INR 1.0 07/02/16 05:53 APTT 31 SECONDS (21-34) D 07/02/16 05:53 - Constitutional Appears: Non-toxic, No Acute Distress - Head Exam Head Exam: NORMOCEPHALIC - Eye Exam Eye Exam: Normal appearance - ENT Exam ENT Exam: Mucous Membranes Moist - Respiratory Exam Respiratory Exam: NORMAL BREATHING PATTERN - Cardiovascular Exam Cardiovascular Exam: +S1, +S2 - GI/Abdominal Exam GI & Abdominal Exam: Soft, Tenderness - Neurological Exam Neurological Exam: Alert, Awake, Oriented x3 - Psychiatric Exam Psychiatric exam: Normal Mood - Skin Skin Exam: Dry, Intact, Normal Color Assessment and Plan - Assessment and Plan (Free Text) Assessment: 35F s/p laparoscopic cholecystectomy POD #1 -Clear for d/c from surgical standpoint -REGINA drain removed at bedside -Dressing c/d/i -F/u with Dr. Manzanares in 10-14 days -Vincent Manzanares
[2016-07-03] MEDS ORDERED: Influenza Virus Vaccine 45 mcg/0.5 ml Syr IM ONE (13:38)
[2016-07-03] MEDS ORDERED: Pneumococcal 23-Valent Vaccine IM ONE (13:39)
--- NOTE | 2016-07-05 21:12 | OP ---
PROCEDURE DATE: 07/02/2016 PREOPERATIVE DIAGNOSES: Acute cholecystitis and cholelithiasis. POSTOPERATIVE DIAGNOSES: 1. Acute on chronic cholecystitis and cholelithiasis. 2. Extensive postinfectious adhesion of the omentum and the duodenum. PROCEDURE DONE: 1. Laparoscopic cholecystectomy. 2. Laparoscopic extensive lysis of adhesions. SURGEON: Singh Manzanares MD SPORTS THERAPIST: JAMAR Andre. Nova was present from the beginning to the end of the procedure, h elped in the prepping and draping, and the placement of port. ANESTHESIA: General endotracheal tube anesthesia. ESTIMATED BLOOD LOSS: Around 50 mL. DRAINS: 19 [place] Dim[place] drain was placed. COMPLICATIONS: None. INTRAOPERATIVE FINDINGS: The patient had extensive postinfectious adhesions as well as acute on intraoperative neuro tech maynor cholecystitis with extensive edema. INTRAOPERATIVE STEPS: This is a 35-year-old female who was diagnosed with acute cholecystitis and ch olelithiasis and the patient was consented for the laparoscopic cholecystectomy, possible open, broug ht to the OR, placed supine on the operating table. After induction of the anesthesia, the abdomen w as prepped and draped in the usual sterile fashion. Supraumbilical transverse 1.5 cm incision was ma de. After incising skin and subcutaneous tissue, the fascia was incised. Josh port was placed. P neumo was created. The 12 mm port was placed in the midline just below costal margin. Two 5 mm port s were placed in midclavicular and anterior axillary line. After the grasper and dissector was intro duced, gallbladder was retracted cranially. The patient found to have extensive omental as well as duodenal adhesions. The gallbladder was aspirated and extensive lysis of adhesion was done and hemos tasis was achieved. The infundibulum was identified and Calot's triangle dissection was done. Cysti c duct and cystic artery was identified. The critical view of safety was also identified and the cys tic duct was clipped at 3 places and cut in between 2 clips near the gallbladder. The cystic artery was also clipped and cut and the gallbladder was dissected free from the gallbladder fossa. The jasper ent had extensive bleeding from the gallbladder fossa. After proper hemostasis, a 19-[place] [address] dr ain was placed and all the ports were taken out under vision. Pneumo was deflated and the gallbladde r was also sent to the table for the pathology. The umbilical port site was closed in 2 layers, the fascia with 0 Vicryl interrupted sutures, the skin with a 4-0 Monocryl. Dry sterile dressing was edi lied. The patient tolerated the procedure well. Count of instruments and gauze was correct. There was no apparent complication. The patient was extubated in the OR, sent to the postanesthesia care u nit in stable condition. Singh Manzanares MD cc: [id number] TT: 07/05/2016 21:09:10 dale
== END 2016-07-03 14:37 | disposition home or self-care (01) | DRG 493 ==
LOC: C.ER 09:20 → C.3T 15:26
PROVIDERS: ADMIT Internal Medicine Nephrology; ATTEND Internal Medicine Nephrology
PROC: 0FT44ZZ Resection of Gallbladder, Percutaneous Endoscopic Approach (ICD-10-PCS; principal; 2016-07-02 15:45)
DX: K80.12 Calculus of gallbladder with acute and chronic cholecystitis without obstruction (principal); N18.9 Chronic kidney disease, unspecified; I10 Essential (primary) hypertension; F17.210 Nicotine dependence, cigarettes, uncomplicated; I12.9 Hypertensive chronic kidney disease with stage 1 through stage 4 chronic kidney disease, or unspecified chronic kidney disease; K21.9 Gastro-esophageal reflux disease without esophagitis; K66.0 Peritoneal adhesions (postprocedural) (postinfection)